=== PATIENT | female | born 2000 | race Caucasian/White ===

== ENCOUNTER 2022-02-12 13:34 | Emergency (ER) | payer OTHER ==
[2022-02-12 14:38] VITALS: BP 127/74; PULSE 102; TEMP 98.6; BMI 31.9
[2022-02-12] MEDS ORDERED: ONDANSETRON *ODT* 4 MG TABLET SL ONE (14:59)
[2022-02-12] MEDS ORDERED: ACETAMINOPHEN 500 MG TABLET (FP) PO ONE (14:59)
[2022-02-12] MEDS ORDERED: ACETAMINOPHEN 500 MG TABLET (FP) ONE (15:36)
[2022-02-12] MEDS ORDERED: ONDANSETRON *ODT* 4 MG TABLET ONE (15:36)
[2022-02-13 12:11] LABS: SARS-CoV-2 NAA Not Detected (Not Detected)
== END 2022-02-12 16:38 | disposition home or self-care (01) ==
LOC: JER 13:34
DX: J02.9 Acute pharyngitis, unspecified (principal); J06.9 Acute upper respiratory infection, unspecified; M79.10 Myalgia, unspecified site
CPT/HCPCS: 87804; 99283-25; C9803-CS; Q0162; U0003; U0005

== ENCOUNTER 2022-08-07 01:03 | Emergency (ER) | payer OTHER ==
[2022-08-07 01:14] VITALS: BMI 31.7
[2022-08-07] MEDS ORDERED: ACETAMINOPHEN 1000 MG/100 ML BAG IVPB ONE (02:01)
[2022-08-07] MEDS ORDERED: SODIUM CHLORIDE 0.9% 500 ML INFUS.BAG IV ONE (02:01)
[2022-08-07] MEDS ORDERED: ACETAMINOPHEN INJECTION 100 ML IVPB ONE (02:12)
[2022-08-07 02:27] LABS: BASO % 0.2 % (0-2.0); EOS % 0.2 % (0-4.5); HEMATOCRIT 36.8 % (32.4-45.2); HEMOGLOBIN 12.7 GM/dL (10.7-15.3); LYMPH % 9.4 % (8-40); MCH 31.1 pg (25.7-33.7); MCHC 34.4 g/dl (32.0-36.0); MEAN CELL VOLUME 90.4 fl (80-96); MONO % 6.5 % (3.8-10.2); NEUT % 83.7 % (42.8-82.8); PLATELET COUNT 240 10^3/uL (134-434); RBC 4.07 M/mm3 (3.60-5.2); WHITE BLOOD COUNT 14.1 K/mm3 (4.0-10.0)
[2022-08-07 02:48] LABS: BLOOD UREA NITROGEN 6.9 mg/dL (7-18); CALCIUM 8.5 mg/dL (8.5-10.1)
[2022-08-07 02:51] LABS: CREATININE 0.5 mg/dL (0.55-1.3)
[2022-08-07 02:53] LABS: BILIRUBIN,TOTAL 1.3 mg/dL (0.2-1); TOT PROT 6.3 g/dl (6.4-8.2)
[2022-08-07 08:19] LABS: EPI CELLS >36 /uL (0-25.1); HYALINE CASTS 1 /uL (0-3.1); PH,URINE 6.5 (5.0-8.0); URINE APPEARANCE CLOUDY; URINE BACTERIA 441 /uL (0-1359); URINE BILIRUBIN 2+ (NEGATIVE); URINE COLOR DK YELLOW; URINE GLUCOSE (UA) NEGATIVE (NEGATIVE); URINE KETONE NEGATIVE (NEGATIVE); URINE LEUK ESTERASE TRACE (NEGATIVE); URINE NITRITE NEGATIVE (NEGATIVE); URINE PROTEIN NEGATIVE (NEGATIVE); URINE RBC 8 /uL (0-23.9); URINE UROBILINOGEN 4.0 E.U/dl mg/dL (0.2-1.0); URINE WBC 13 /uL (0-25.8)
[2022-08-07 11:24] VITALS: BP 128/64; PULSE 86; RESP 17; TEMP 98.1
== END 2022-08-07 11:24 | disposition home or self-care (01) ==
LOC: JER 01:03
PROC: 3E0333Z Introduction of Anti-inflammatory into Peripheral Vein, Percutaneous Approach (ICD-10-PCS; principal; 2022-08-07)
DX: O26.893 Other specified pregnancy related conditions, third trimester (principal); R10.11 Right upper quadrant pain; Z3A.30 30 weeks gestation of pregnancy
CPT/HCPCS: 36415; 76705-TC; 80053; 81003; 83690; 85025; 99284-25

== ENCOUNTER 2022-09-24 09:05 | Inpatient (IN) | payer OTHER ==
[2022-09-24] MEDS: ELECTROLYTE-148 SOLN 1,000 ML IV SCH ×2 (13:00→22:08)
[2022-09-24 13:36] VITALS: BMI 36.8
[2022-09-24] MEDS ORDERED: OXYTOCIN 30 UNITS in 0.9% NS 30 UNIT/500 ML INFUS.BAG IVPB ONE (13:37)
[2022-09-24] MEDS: OXYTOCIN 30 UNITS in 0.9% NS 30 UNIT/500 ML INFUS.BAG IVPB SCH (13:40)
[2022-09-24 14:30] LABS: BASO % 0.4 % (0-2.0); EOS % 0.2 % (0-4.5); LYMPH % 12.4 % (8-40); MCH 31.6 pg (25.7-33.7); MEAN CELL VOLUME 90.2 fl (80-96); MEAN PLT VOLUME 8.6 fl (7.5-11.1); PLATELET COUNT 264 10^3/uL (134-434); RBC 4.43 M/mm3 (3.60-5.2); WHITE BLOOD COUNT 15.4 K/mm3 (4.0-10.0)
[2022-09-24 14:36] LABS: INR 0.98 (0.83-1.09); PROTHROMBIN TIME (PATIENT) 11.3 SEC (9.7-13.0)
[2022-09-24 14:39] LABS: ACTIVATED PTT 28.7 SECONDS (25.2-36.5)
[2022-09-24 15:19] LABS: BLOOD UREA NITROGEN 6.8 mg/dL (7-18); CREATININE 0.6 mg/dL (0.55-1.3)
[2022-09-24] MEDS ORDERED: PROMETHAZINE HCL 25 MG/1 ML VIAL ONE (16:17)
[2022-09-24] MEDS ORDERED: BUTORPHANOL TARTRATE 1 MG/ML VIAL ONE (16:17)
[2022-09-24] MEDS ORDERED: PROMETHAZINE HCL 25 MG/1 ML VIAL IVPB ONE (17:14)
[2022-09-24] MEDS ORDERED: BUTORPHANOL TARTRATE 1 MG/ML VIAL IVPB ONE (17:14)
[2022-09-24] MEDS ORDERED: FENTANYL/BUPIVACAINE/NS/PF - PCEA - 50 ML DISP.SYRIN EP ONE ×2 (19:35→23:44)
[2022-09-24] MEDS ORDERED: NALOXONE HCL 0.4 MG/ML VIAL IVPUSH PRN (19:36)
[2022-09-24] MEDS ORDERED: BUPIVACAINE HCL/PF 0.25% (2.5MG/ML) 10 ML VIAL ONE (19:36)
[2022-09-24] MEDS ORDERED: FENTANYL/BUPIVACAINE/NS/PF - PCEA - 50 ML DISP.SYRIN EP SCH (19:45)
[2022-09-24] MEDS ORDERED: OXYTOCIN 20 UNITS in 0.9% NS 20 UNIT/1,000 ML INFUS.BAG IV ONE (23:33)
[2022-09-25] MEDS ORDERED: LIDOCAINE HCL 1% PRESERVATIVE FREE - 30ML VIAL ONE (03:24)
[2022-09-25] MEDS ORDERED: MISOPROSTOL 200 MCG TABLET ONE (03:37)
[2022-09-25] MEDS ORDERED: ACETAMINOPHEN 325 MG TABLET (FP) PO PRN (03:56)
[2022-09-25] MEDS ORDERED: IBUPROFEN 600 MG TABLET (FP) PO PRN (03:56)
[2022-09-25] MEDS ORDERED: WITCH HAZEL 50% (TUCKS) 40 PAD/JAR PAD TP PRN (03:56)
[2022-09-25] MEDS ORDERED: BISACODYL 10 MG SUPP.RECT RC PRN (03:56)
[2022-09-25] MEDS ORDERED: BENZOCAINE 28 GM HEMORRHOIDAL OINTMENT TP PRN (03:56)
[2022-09-25] MEDS ORDERED: BENZOCAINE 20% 57 GM BOTTLE TP PRN (03:56)
[2022-09-25] MEDS ORDERED: MISOPROSTOL 200 MCG TABLET PV ONE (03:57)
[2022-09-25] MEDS ORDERED: OXYTOCIN 20 UNITS in 0.9% NS 20 UNIT/1,000 ML INFUS.BAG IV SCH (04:00)
[2022-09-25 12:56] LABS: POC NITRAZINE POS
[2022-09-26 09:45] LABS: BASO % 0.4 % (0-2.0); EOS % 0.8 % (0-4.5); HEMATOCRIT 34.7 % (32.4-45.2); HEMOGLOBIN 11.7 GM/dL (10.7-15.3); LYMPH % 20.4 % (8-40); MCH 30.9 pg (25.7-33.7); MCHC 33.7 g/dl (32.0-36.0); MEAN CELL VOLUME 91.6 fl (80-96); MEAN PLT VOLUME 9.1 fl (7.5-11.1); NEUT % 71.4 % (42.8-82.8); PLATELET COUNT 227 10^3/uL (134-434); RBC 3.79 M/mm3 (3.60-5.2); RDW 13.2 % (11.6-15.6); WHITE BLOOD COUNT 15.9 K/mm3 (4.0-10.0)
[2022-09-26] MEDS: ELECTROLYTE-148 SOLN 1,000 ML IV SCH (20:13)
[2022-09-26] MEDS: OXYTOCIN 30 UNITS in 0.9% NS 30 UNIT/500 ML INFUS.BAG IVPB SCH (20:13)
[2022-09-26] MEDS ORDERED: SENNOSIDES/DOCUSATE COMBO (SENNA PLUS) TABLET (UD) PO PRN (22:00)
[2022-09-27 01:01] VITALS: RESP 18
[2022-09-27 11:31] VITALS: BP 107/59; PULSE 87; TEMP 98.2
== END 2022-09-27 14:55 | disposition home or self-care (01) | DRG 560 ==
LOC: JDEL 09:05 → JLDR 12:20 → J3W 09-25 05:09
PROVIDERS: ADMIT Student in an Organized Health Care Education/Training Program; ATTEND Student in an Organized Health Care Education/Training Program
PROC: 10E0XZZ Delivery of Products of Conception, External Approach (ICD-10-PCS; principal; 2022-09-25)
DX: O42.92 Full-term premature rupture of membranes, unspecified as to length of time between rupture and onset of labor (principal); Z3A.37 37 weeks gestation of pregnancy; Z37.0 Single live birth
CPT/HCPCS: 36415; 59025; 59409; 80048; 83986-QW; 85025; 85610; 85730; 86780; 86850; 86900; 86901; C9803-CS; U0003; U0005